=== PATIENT | female | born 1965 | race Caucasian/White ===

== ENCOUNTER 2021-02-15 16:41 | Emergency (ER) | payer OTHER, SELFPAY ==
[~2021-02-15] VITALS: Ht 165.1 cm; Wt 63.8 kg
--- NOTE | 2021-02-15 17:15 | NUR ---
TASK RN: TO CT VIA RENATE
--- NOTE | 2021-02-15 17:23 | NUR ---
TASK RN: AMBULATED ACROSS [facility] TO REST ROOM TO PROVIDE URINE SAMPLE
[2021-02-15] MEDS ORDERED: MORPHINE SULFATE 4 MG/ML, 1ML IVPush PRN (17:30)
[2021-02-15] MEDS ORDERED: ONDANSETRON 2MG/ML, 2ML ONE (17:37)
[2021-02-15] MEDS ORDERED: KETOROLAC 30 MG/1 ML ONE (17:37)
[2021-02-15] MEDS ORDERED: MORPHINE SULFATE 4 MG/ML, 1ML ONE (17:38)
--- NOTE | 2021-02-15 17:53 | NUR ---
RECEIVED REPORT FROM BROOKS ZAMORA.
[2021-02-15] MEDS ORDERED: KETOROLAC 30 MG/1 ML IVPush ONE (18:00)
[2021-02-15] MEDS ORDERED: ONDANSETRON 2MG/ML, 2ML IVPush ONE (18:00)
[2021-02-15] MEDS ORDERED: SODIUM CHLORIDE FLUSH 10ML SYR IVF ONE (18:00)
[2021-02-15 18:05] LABS: BASOPHILS % (AUTO) 1 % (0-1); EOSINOPHILS % (AUTO) 1 % (1-7); LYMPHOCYTES % (AUTO) 33 % (22-44); MEAN CORPUSCULAR HGB CONC 33.8 g/dL (32.4-35.8); MEAN PLATELET VOLUME 7.6 fL (7.4-10.4); MONOCYTES % (AUTO) 9 % (2-9); NEUTROPHILS % (AUTO) 57 % (42-75); PLATELET COUNT 308 x10^3/uL (130-400); RED BLOOD COUNT 4.83 x10^6/uL (3.82-5.3); RED CELL DISTRIBUTION WIDTH 13.3 % (9.6-15.2)
[2021-02-15 18:06] LABS: MICROSCOPIC AUTO
[2021-02-15 18:09] LABS: MD NO
[2021-02-15 18:13] LABS: CHLORIDE 106 mmol/L (98-107)
[2021-02-15 18:19] VITALS: BP 133/74
--- NOTE | 2021-02-15 18:20 | NUR ---
PT STATES SHE FEELS BETTER AFTER PAIN MEDS.
[2021-02-15 18:26] LABS: ALANINE AMINOTRANSFERASE 30 U/L (12-78); ALBUMIN 4.2 g/dL (3.4-5.0); ALKALINE PHOSPHATASE 58 U/L (45-117); ANION GAP 7 mmol/L (5-15); BILIRUBIN,TOTAL 0.2 mg/dL (0.2-1.0); CALCIUM 9.2 mg/dL (8.5-10.1); CREATININE 0.82 mg/dL (0.55-1.02); TOTAL PROTEIN 7.8 g/dL (6.4-8.2); TROPONIN I < 0.015 ng/mL (0.000-0.045)
--- NOTE | 2021-02-15 18:40 | NUR ---
ALL RESULTS ARE BACK AT THIS TIME. CHART UP FOR RECHECK.
== END 2021-02-15 19:13 | disposition home or self-care (01) ==
LOC: ED 19:00
DX: N30.00 Acute cystitis without hematuria (principal); R11.0 Nausea; R10.9 Unspecified abdominal pain; F17.200 Nicotine dependence, unspecified, uncomplicated; Z85.3 Personal history of malignant neoplasm of breast
CPT/HCPCS: 36415; 74176; 80053; 81001; 83690; 84484; 85025; 87086; 93005; 96374; 96375; 99285; J1885; J2270; J2405